=== PATIENT | female | born 1955 | race Caucasian/White ===

== ENCOUNTER 2021-11-03 11:26 | Outpatient (CLI) | payer MEDICARE, SELFPAY ==
[2021-11-03 12:09] LABS: SARS-CoV-2 Ag Negative (Negative)
[2021-11-04 21:11] LABS: SARS-CoV-2 RNA PCR Negative
== END 2021-11-03 11:27 | disposition home or self-care (01) ==
LOC: CHSLAB 11:35
PROVIDERS: PCP Family Medicine; Visit Provider Physician Assistant
DX: Z20.822 Contact with and (suspected) exposure to COVID-19 (principal)
CPT/HCPCS: 87426; C9803; U0003; U0005

== ENCOUNTER 2024-09-08 10:25 | Outpatient (CLI) | payer MEDICARE, SELFPAY ==
--- NOTE | ~2024-09-08 | MR_ITS ---
EXAMINATION: MR knee LT wo con DATE: 09/08/2024 11:58 INDICATION: Medial left knee pain TECHNIQUE: Magnetic resonance imaging (MRI) of the left knee was performed without intravenous contra st. Sequences included coronal PD-weighted FSE, coronal PD-weighted FS FSE, sagittal T2-weighted FSE , sagittal PD-weighted FS FSE and axial PD weighted fat saturated FSE. COMPARISON: None. FINDINGS: Medial compartment: Full-thickness radial tear/avulsion of the posterior root of the medial meniscus. Partial-thickness c hondral and the deep fissuring, in place involving greater than 50% the cartilage thickness. Articula r cartilage along the medial tibial plateau is normal. Lateral compartment: Lateral meniscus is normal. Articular cartilage is normal. Patellofemoral compartment: Deep, full/near full-thickness chondral ulceration with underlying cortical irregularity and mild sub articular edema-like signal changes along portions of the medial patellar facet and apical ridge. Les s severe partial thickness chondral ulceration without degenerative subchondral changes at the latera l patellar facet. Deep chondral ulceration and fissuring extending across the caudal half of the troc hlea. Ligaments and tendons: Anterior cruciate ligament is normal. There is a likely full or near full-thickness tear extending ac ross the midportion of the posterior cruciate ligament. The fibular collateral ligament complex is no rmal. There is mild thickening and increased signal at the proximal medial collateral ligament with s urrounding edema consistent with mild to moderate grade sprain/partial tear. The extensor mechanism i s normal. The visualized medial and lateral hamstring tendons as well as the iliotibial band are norm al. Mild tendinopathy without discrete tear at the origin of the tendon of the medial head of the gas trocnemius. There is a very small partial tear/mild muscle strain along the proximal myotendinous jase ction of the lateral head of the gastrocnemius. Fluid: Small left knee joint effusion. No loose osteochondral bodies identified. Small Portillo's cyst. Osseous/other: There is prominent marrow edema surrounding a transverse low signal intensity fracture line underlyin g the medial tibial plateau as well as at the more localized and shallower some articular low signal intensity fracture lines at the posterior central aspect of the medial tibial plateau and juxtaposed anterior weightbearing medial femoral condyle. There is slight depression with flattening of the paige cular cortex a small portion of the anterior weightbearing medial femoral condyle. No pathologic satish ow replacing process. IMPRESSION: 1. Full or near full-thickness tear of the mid posterior cruciate ligament and low to moderate grade sprain/partial tear at the proximal medial collateral ligament. 2. Full-thickness radial tear at the posterior root of the medial meniscus. 3. Nondisplaced horizontal fracture underlying the medial tibial plateau and more localized and super ficial subarticular fractures at the posterior central medial tibial plateau and juxtaposed anterior weightbearing medial femoral condyle where there is slight flattening of the articular cortex. 4. Mild tendinopathy at the femoral origin of the medial head of the gastrocnemius muscle and very sm all partial tear/low-grade strain at the proximal myotendinous junction of the lateral head of the ga strocnemius. 5. 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 Small knee joint effusion and small Portillo's cyst. Reviewed, dictated and finalized at location A. [facility] [employer] IMPRESSION: 1. Full or near full-thickness tear of the mid posterior cruciate ligament and low to moderate grade sprain/partial tear at the proximal medial collateral lig ament. 2. Full-thickness radial tear at the posterior root of the medial meniscus. 3. Nondisplaced horizontal fracture underlying the medial tibial plateau and mo re localized and superficial subarticular fractures at the posterior central me dial tibial plateau and juxtaposed anterior weightbearing medial femoral condyl e where there is slight flattening of the articular cortex. 4. Mild tendinopathy at the femoral origin of the medial head of the gastrocnem ius muscle and very small partial tear/low-grade strain at the proximal myotend inous junction of the lateral head of the gastrocnemius. 5. Mild medial and patellofemoral osteoarthritis with moderate grade chondromal acia the former and high-grade chondromalacia at the latter 6. Small knee joint effusion and small Portillo's cyst.
== END 2024-09-08 10:26 | disposition home or self-care (01) ==
LOC: CHSIMG 10:27
PROVIDERS: PCP Family Medicine; Visit Provider Family Medicine
DX: M23.92 Unspecified internal derangement of left knee (principal); S83.522A Sprain of posterior cruciate ligament of left knee, initial encounter; S83.242A Other tear of medial meniscus, current injury, left knee, initial encounter; S82.142A Displaced bicondylar fracture of left tibia, initial encounter for closed fracture; M17.12 Unilateral primary osteoarthritis, left knee; M25.462 Effusion, left knee; M71.22 Synovial cyst of popliteal space [Baker], left knee
CPT/HCPCS: 73721